=== PATIENT | female | born 1950 | race African-American/Black ===

== ENCOUNTER → 2019-07-15 | Outpatient (CLI) | payer OTHER, BC ==
[~2019-07-15] VITALS: Ht 165.1 cm; Wt 77.1 kg
[~2019-07-15] MED LIST: ALBUTEROL INHAL17 GM IH; CRESTOR10 MG PO; FLOVENT DISKU250 MCG INH; IRON240 M1 PO; MEDROLDOSEPACK PO; MOBIC7.5 MG PO; NASONEX17 GM NASAL; NASONEX17 GM NS; NEXIUM40 MG PO; PREMPRO 0.625-1 EACH PO; VALACYCLOVIR500 MG PO; VALTREX; VENTOLIN HFA 1818 GM INH; YUVAFEM10 MCG VAG; ZYRTEC; ZYRTEC10 M5 PO
--- NOTE | 2019-07-16 14:32 | P ---
[facility] [place] [address] PROCEDURE REPORT Name: SHEA HURSTDAVID LUTZ Room #: REG [facility].#: [id number] Admission: 07/15/19 Attend Phys: Froy Reynolds Discharge: Date of : 48 Report #: [id number] THIS REPORT FOR: //name// CC: Froy Kc FAM unknown Physician staff [place] DATE OF SERVICE: 07/15/2019 PROCEDURE PERFORMED: Colonoscopy with biopsies. HISTORY OF PRESENT ILLNESS: The patient is a 68-year-old female with a history of colon polyps, here for her routine 5-year followup. Denies any symptoms in general. No family history of colon cancer. DESCRIPTION OF PROCEDURE: The risks and benefits of the procedure were explained to the patient, those risks including but not limited to bleeding, perforation, and the risk of sedation. She understood these risks and gave informed consent. Sedation was given using propofol per anesthesia. Next, a digital rectal exam was initially performed, which was normal. Next, using a standard Olympus colonoscope, the scope was placed in the patient's anus and advanced under direct vision into the cecum. The overall prep was excellent. In the cecum, two 3-4 mm sessile polyps were noted, both removed with cold forceps, otherwise normal. Ileocecal valve was normal. Ascending, transverse and descending colon were normal. In the sigmoid colon, a 3 mm sessile polyp also noted and removed with cold forceps. Rectal mucosa was normal. On retroflexion, no abnormalities were noted. The scope was then withdrawn and the procedure terminated. The patient tolerated the procedure well. IMPRESSION: 1. Three small colonic polyps. 2. Otherwise, normal colonoscopy. RECOMMENDATIONS: If polyps are hyperplastic, repeat in 10 years; if adenomatous polyp, repeat in 5 years. Thank you for allowing me to participate in her care. <ELECTRONICALLY SIGNED> By: Froy Kc MD 07/16/19 [id number] [id number] Froy Kc MD /nt
--- NOTE | 2019-07-16 16:06 | PATH ---
[facility] [address] [place] [address] PATHOLOGY RPT PROCEDURE Name: SHERRY HOLT Room #: [facility] M.R.#: [id number] Admission: 07/15/19 Date of : 48 Discharge: Report #: [id number] Path Case #: [id number] [facility] Accession Number: [id number] . 01 Material submitted: . PART A: cecum - BIOPSY POLYP AT CECUM X2 PART B: colon - BIOPSY POLYP AT SIGMOID COLON. Modifiers: sigmoid . 01 Clinical history: . Pre-OP DX: Hx polyps Post-OP DX: Colon polyps . 02 Diagnosis: A. Colon, cecum, biopsy: - Adenomatous polyp. . B. Colon, sigmoid, biopsy: - Adenomatous polyp. . (SKM:kimani; 07/16/2019) QLM/07/16/2019 . 02 Electronically signed: . Reza Del Rosario MD, Pathologist NPI- [id number] . 01 Gross description: . A. Received in formalin labeled "Sherry Holt, BX polyp at cecum x2," are 2 segments of rangel soft tissue measuring 0.9 x 0.2 x 0.2 cm in aggregate dimensions and ranging from 0.4 to 0.5 cm in maximum dimension. The specimen is submitted entirely in cassette A1. . B. Received in formalin labeled "Sherry Holt, BX polyp at sigmoid colon," are 3 segments of rangel soft tissue measuring 0.7 x 0.4 x 0.3 cm in aggregate dimensions and ranging from 0.2 to 0.4 cm in maximum dimension. The specimen is submitted entirely in cassette B1. (TSD; 07/15/2019) TOB/TOB . 02 Pathologist provided ICD-10: D12.0, D12.5 . 02 CPT . 657876, 667144 Specimen Comment: A courtesy copy of this report has been sent to Specimen Comment: [phone], , . Specimen Comment: Report sent to ,DR SANDOVAL / [place] [address] PATHOLOGY RPT PROCEDURE Name: SHERRY HOLT BOLIVAR Room #: [facility] Kathi#: [id number] Admission: 07/15/19 Date of : 48 Discharge: Report #: [id number] Path Case #: [id number] Specimen Comment: A duplicate report has been generated due to demographic updates. Performed at: [address] [facility] [address], [place], [place] [id number] MD Atul Lanza MD Phone: [phone] Performed at: [address] [facility] [id number] MD Freda Melissa MD Phone: [phone]
== END | disposition home or self-care (01) ==
LOC: GI 07:33
DX: Z12.11 Encounter for screening for malignant neoplasm of colon (principal); Z86.010 Personal history of colon polyps; D12.0 Benign neoplasm of cecum; D12.5 Benign neoplasm of sigmoid colon; J45.909 Unspecified asthma, uncomplicated; G47.30 Sleep apnea, unspecified; E78.5 Hyperlipidemia, unspecified; D64.9 Anemia, unspecified; K21.9 Gastro-esophageal reflux disease without esophagitis; Z98.890 Other specified postprocedural states; Z96.652 Presence of left artificial knee joint; Z79.899 Other long term (current) drug therapy; Z88.2 Allergy status to sulfonamides; Z91.040 Latex allergy status
CPT/HCPCS: 62110; 62900